=== PATIENT | male | born 1965 ===

== ENCOUNTER 2018-05-23 21:45 | Inpatient (IN) ==
[2018-05-24] MEDS ORDERED: NOREPINEPHRINE 8 MG in SODIUM CHLORIDE 0.9% 242 ML IV PRN ×2 (00:53→01:10)
[2018-05-24] MEDS ORDERED: NOREPINEPHRINE 4 MG/4 ML VIAL IV ONE (00:53)
[2018-05-24] MEDS ORDERED: SODIUM CHLORIDE 0.9% 1,000 ML IV ONE (01:13)
[2018-05-24] MEDS ORDERED: ALBUTEROL 2.5 MG/3 ML NEB RESP TX PRN (01:14)
[2018-05-24] MEDS ORDERED: ONDANSETRON 4 MG/2 ML VIAL IV PRN (01:14)
[2018-05-24] MEDS ORDERED: DEXTROSE 50% 25 GM/50 ML VIAL IV PRN (01:18)
[2018-05-24] MEDS ORDERED: GLUCAGON 1 MG VIAL IM PRN (01:18)
[2018-05-24 01:34] LABS: Basophils # 0.1 10*3/uL (0.0-0.2); Basophils % 0.5 % (0.0-0.8); Eosinophils % 0.1 % (0.00-10.9); Hematocrit 48.6 VOL% (42.0-52.0); Hemoglobin 16.2 GM/DL (14.0-18.0); Immature Granulocytes Absolute 0.15 #; Lymphocytes # 1.2 10*3/uL (1.4-4.0); Lymphocytes % 7.8 % (21.2-54.2); Mean Corpuscular HGB Conc 33.3 GM/DL (32-36); Mean Corpuscular Hemoglobin 31 PG (27-34); Mean Corpuscular Volume 93.8 FL (87-102); Mean Platelet Volume 9.3 FL (9.6-12.0); Monocytes # 1.6 10*3/uL (0.11-0.8); Monocytes % 10.2 % (1.7-12.7); Neutrophils # 12.3 10*3/uL (1.4-7.4); Neutrophils % 80.4 % (38.7-73.9); Platelet Count 312 T/CUMM (130-400); Red Blood Count 5.18 MC/CUMM (3.8-5.5); Red Cell Distribution Width 15.5 % (9.3-17.3); White Blood Count 15.3 T/CUMM (4-12)
[2018-05-24 01:39] LABS: ABG Base Excess -3.3 MMOL/L (-2.5-2.5); ABG HCO3 21.6 MMOL/L (20-26); ABG Oxygen Saturation 95.5 % (95-100); ABG PCO2 46.9 MM HG (35-48); ABG PH 7.308 (7.35-7.45); ABG PO2 95.2 MM HG (80-95); ABG TCO2 20.1 MMOL/L (23-27); Allen Test Positive
[2018-05-24 01:56] LABS: Lactic Acid 2.9 MMOL/L (0.4-2.0)
[2018-05-24 01:57] LABS: Alanine Aminotransferase 22 U/L (16-61); Albumin 3.2 G/DL (3.4-5.0); Alkaline Phosphatase 93 U/L (45-117); Ammonia < 10 UMOL/L (11-32); Aspartate Amino Transferase 38 U/L (0-37); Blood Urea Nitrogen 61 MG/DL (7-18); Calcium 8.9 MG/DL (8.5-10.1); Glucose 159 MG/DL (74-106); Osmolality,Calculated 281.7 MOS/KG (273-304); Potassium 4.5 MMOL/L (3.5-5.1); Sodium 131 MMOL/L (136-145); Total Protein 9.1 G/DL (6.4-8.3)
[2018-05-24] MEDS: PIPERACILLIN/TAZOBACTAM 3,375 MG in SODIUM CHLORIDE 0.9% 100 ML IV SCH ×2 (02:27→15:29)
[2018-05-24 02:48] LABS: Risk Ratio 3.71; Thyroid Stimulating Hormone 1.9 uIU/ml (0.358-3.74); VLDL CHOLESTEROL 26.8 MG/DL
[2018-05-24] MEDS ORDERED: LACTATED RINGERS IV ONE (03:40)
[2018-05-24 04:29] LABS: CKMB % 1.5 %
[2018-05-24] MEDS: INSULIN REGULAR 100 UNIT/ML SUBCUT SCH ×4 (06:13→23:58)
[2018-05-24] MEDS: ENOXAPARIN 30 MG/0.3 ML SYRINGE SUBCUT SCH (09:30)
[2018-05-24] MEDS: methylPREDNISolone SOD SUC 40 MG/1 ML VIAL IV SCH (09:30)
[2018-05-24] MEDS: PANTOPRAZOLE 40 MG VIAL IV SCH (09:30)
[2018-05-24] MEDS: diphenhydrAMINE CAP 25 MG CAPSULE PO SCH ×2 (09:30→15:29)
[2018-05-24] MEDS: FAMOTIDINE 20 MG TABLET PO SCH (09:30)
[2018-05-24] MEDS ORDERED: ASPIRIN EC 325 MG TABLET PO SCH (14:30)
[2018-05-24 16:36] LABS: CKMB % 1.8 %
[2018-05-24 16:39] LABS: Troponin I Only 4.32 NG/ML (0.00-0.045)
[2018-05-25] MEDS: PIPERACILLIN/TAZOBACTAM 3,375 MG in SODIUM CHLORIDE 0.9% 100 ML IV SCH ×2 (01:34→13:28)
[2018-05-25] MEDS: INSULIN REGULAR 100 UNIT/ML SUBCUT SCH ×3 (05:40→18:02)
[2018-05-25 06:50] LABS: Basophils # 0.1 10*3/uL (0.0-0.2); Basophils % 0.5 % (0.0-0.8); Eosinophils % 0.1 % (0.00-10.9); Hematocrit 42.5 VOL% (42.0-52.0); Hemoglobin 14.3 GM/DL (14.0-18.0); Immature Granulocytes % 0.8 %; Immature Granulocytes Absolute 0.09 #; Lymphocytes # 0.4 10*3/uL (1.4-4.0); Lymphocytes % 3.4 % (21.2-54.2); Mean Corpuscular HGB Conc 33.6 GM/DL (32-36); Mean Corpuscular Hemoglobin 31 PG (27-34); Mean Corpuscular Volume 92.2 FL (87-102); Mean Platelet Volume 9.6 FL (9.6-12.0); Monocytes # 0.8 10*3/uL (0.11-0.8); Monocytes % 7.3 % (1.7-12.7); Neutrophils % 87.9 % (38.7-73.9); Platelet Count 295 T/CUMM (130-400); Red Blood Count 4.61 MC/CUMM (3.8-5.5); White Blood Count 11.4 T/CUMM (4-12)
[2018-05-25 06:55] LABS: INR 1.4; PT Patient Result 14.5 SECS
[2018-05-25 07:09] LABS: Calcium 8.5 MG/DL (8.5-10.1); Osmolality,Calculated 295.7 MOS/KG (273-304); Potassium 5.2 MMOL/L (3.5-5.1)
[2018-05-25 07:11] LABS: Albumin 2.2 G/DL (3.4-5.0); Bilirubin,Total 0.4 MG/DL (0.2-1.0); Calcium 8.4 MG/DL (8.5-10.1); Osmolality,Calculated 295.7 MOS/KG (273-304); Potassium 5.1 MMOL/L (3.5-5.1); Total Protein 6.7 G/DL (6.4-8.3)
[2018-05-25 07:12] LABS: Band Neutrophils 9 % (0-10); Hypochromasia 1+; Lymphocytes 5 % (20-55); Ovalocytes Slight; Platelet Estimate Adequate; Segmented Neutrophils 79 % (50-85); Total Cells Counted 100
[2018-05-25 07:25] LABS: CKMB % 1.7 %
[2018-05-25 07:26] LABS: Troponin I Only 4.25 NG/ML (0.00-0.045)
[2018-05-25] MEDS: FAMOTIDINE 20 MG TABLET PO SCH (09:01)
[2018-05-25] MEDS: methylPREDNISolone SOD SUC 40 MG/1 ML VIAL IV SCH (09:02)
[2018-05-25] MEDS: PANTOPRAZOLE 40 MG VIAL IV SCH (09:02)
[2018-05-25] MEDS: ASPIRIN EC 81 MG TABLET PO SCH (09:02)
[2018-05-25] MEDS: ENOXAPARIN 30 MG/0.3 ML SYRINGE SUBCUT SCH (09:03)
[2018-05-25] MEDS: CINACALCET 30 MG TABLET PO SCH (20:13)
[2018-05-26] MEDS: INSULIN REGULAR 100 UNIT/ML SUBCUT SCH ×4 (00:53→18:55)
[2018-05-26] MEDS: PIPERACILLIN/TAZOBACTAM 3,375 MG in SODIUM CHLORIDE 0.9% 100 ML IV SCH ×2 (00:54→12:45)
[2018-05-26 05:42] LABS: Basophils % 0.2 % (0.0-0.8); Hematocrit 40.5 VOL% (42.0-52.0); Hemoglobin 13.5 GM/DL (14.0-18.0); Immature Granulocytes % 0.9 %; Lymphocytes # 0.5 10*3/uL (1.4-4.0); Lymphocytes % 4.7 % (21.2-54.2); Mean Corpuscular HGB Conc 33.3 GM/DL (32-36); Mean Corpuscular Hemoglobin 31 PG (27-34); Mean Corpuscular Volume 91.6 FL (87-102); Mean Platelet Volume 9.9 FL (9.6-12.0); Monocytes # 0.7 10*3/uL (0.11-0.8); Monocytes % 5.9 % (1.7-12.7); Neutrophils # 10.2 10*3/uL (1.4-7.4); Neutrophils % 88.3 % (38.7-73.9); Platelet Count 279 T/CUMM (130-400); Red Blood Count 4.42 MC/CUMM (3.8-5.5); Red Cell Distribution Width 14.9 % (9.3-17.3); White Blood Count 11.5 T/CUMM (4-12)
[2018-05-26 05:58] LABS: Calcium 8.1 MG/DL (8.5-10.1); Osmolality,Calculated 308.5 MOS/KG (273-304)
[2018-05-26 06:18] LABS: Band Neutrophils 9 % (0-10); Lymphocytes 5 % (20-55); Segmented Neutrophils 83 % (50-85); Total Cells Counted 100
[2018-05-26 06:19] LABS: Burr Cells Few; Platelet Estimate Normal; Target Cells Few
[2018-05-26] MEDS: FAMOTIDINE 20 MG TABLET PO SCH (08:35)
[2018-05-26] MEDS: methylPREDNISolone SOD SUC 40 MG/1 ML VIAL IV SCH (08:35)
[2018-05-26] MEDS: PANTOPRAZOLE 40 MG VIAL IV SCH (08:35)
[2018-05-26] MEDS: INSULIN NPH/REGULAR 70/30 100 UNIT/ML SUBCUT SCH (08:35)
[2018-05-26] MEDS: ENOXAPARIN 30 MG/0.3 ML SYRINGE SUBCUT SCH (08:35)
[2018-05-26] MEDS: ASPIRIN EC 81 MG TABLET PO SCH (08:36)
[2018-05-26] MEDS: CINACALCET 30 MG TABLET PO SCH (20:18)
[2018-05-27] MEDS: INSULIN REGULAR 100 UNIT/ML SUBCUT SCH ×4 (00:25→17:36)
[2018-05-27 05:18] LABS: Basophils % 0.2 % (0.0-0.8); Hematocrit 46.1 VOL% (42.0-52.0); Hemoglobin 15.8 GM/DL (14.0-18.0); Immature Granulocytes % 1.1 %; Immature Granulocytes Absolute 0.11 #; Lymphocytes # 0.6 10*3/uL (1.4-4.0); Lymphocytes % 6.4 % (21.2-54.2); Mean Corpuscular HGB Conc 34.3 GM/DL (32-36); Mean Corpuscular Hemoglobin 32 PG (27-34); Mean Corpuscular Volume 92.8 FL (87-102); Mean Platelet Volume 9.8 FL (9.6-12.0); Monocytes # 0.7 10*3/uL (0.11-0.8); Monocytes % 7.2 % (1.7-12.7); Neutrophils # 8.6 10*3/uL (1.4-7.4); Neutrophils % 85.1 % (38.7-73.9); Platelet Count 319 T/CUMM (130-400); Red Blood Count 4.97 MC/CUMM (3.8-5.5); Red Cell Distribution Width 14.9 % (9.3-17.3)
[2018-05-27] MEDS: FAMOTIDINE 20 MG TABLET PO SCH (10:03)
[2018-05-27] MEDS: ASPIRIN EC 81 MG TABLET PO SCH (10:03)
[2018-05-27] MEDS: ENOXAPARIN 30 MG/0.3 ML SYRINGE SUBCUT SCH (10:04)
[2018-05-27] MEDS: PANTOPRAZOLE 40 MG VIAL IV SCH (10:04)
[2018-05-27] MEDS: INSULIN NPH/REGULAR 70/30 100 UNIT/ML SUBCUT SCH ×2 (10:04→17:35)
[2018-05-27] MEDS: CINACALCET 30 MG TABLET PO SCH (20:28)
[2018-05-28] MEDS: INSULIN REGULAR 100 UNIT/ML SUBCUT SCH ×4 (00:03→19:02)
[2018-05-28 04:49] LABS: Basophils # 0.1 10*3/uL (0.0-0.2); Basophils % 0.5 % (0.0-0.8); Eosinophils # 0.1 10*3/uL (0.0-0.87); Eosinophils % 0.5 % (0.00-10.9); Hematocrit 47.2 VOL% (42.0-52.0); Immature Granulocytes % 3.4 %; Immature Granulocytes Absolute 0.36 #; Lymphocytes % 9.1 % (21.2-54.2); Mean Corpuscular HGB Conc 33.9 GM/DL (32-36); Mean Corpuscular Hemoglobin 31 PG (27-34); Mean Corpuscular Volume 91.3 FL (87-102); Mean Platelet Volume 9.5 FL (9.6-12.0); Monocytes # 1.2 10*3/uL (0.11-0.8); Monocytes % 11.4 % (1.7-12.7); Neutrophils % 75.1 % (38.7-73.9); Platelet Count 325 T/CUMM (130-400); Red Blood Count 5.17 MC/CUMM (3.8-5.5); Red Cell Distribution Width 15.3 % (9.3-17.3); White Blood Count 10.6 T/CUMM (4-12)
[2018-05-28 05:16] LABS: Albumin 2.4 G/DL (3.4-5.0); Bilirubin,Total 0.6 MG/DL (0.2-1.0); Calcium 7.2 MG/DL (8.5-10.1); Osmolality,Calculated 299.8 MOS/KG (273-304); Potassium 4.5 MMOL/L (3.5-5.1); Total Protein 7.1 G/DL (6.4-8.3)
[2018-05-28] MEDS: PANTOPRAZOLE 40 MG VIAL IV SCH (09:20)
[2018-05-28] MEDS: INSULIN NPH/REGULAR 70/30 100 UNIT/ML SUBCUT SCH ×2 (09:21→17:17)
[2018-05-28] MEDS: FAMOTIDINE 20 MG TABLET PO SCH (09:23)
[2018-05-28] MEDS: ASPIRIN EC 81 MG TABLET PO SCH (09:23)
[2018-05-28] MEDS: ENOXAPARIN 30 MG/0.3 ML SYRINGE SUBCUT SCH (09:23)
[2018-05-28] MEDS: CINACALCET 30 MG TABLET PO SCH (20:41)
[2018-05-29] MEDS: INSULIN REGULAR 100 UNIT/ML SUBCUT SCH ×4 (00:04→17:27)
[2018-05-29] MEDS: INSULIN NPH/REGULAR 70/30 100 UNIT/ML SUBCUT SCH ×2 (07:30→17:27)
[2018-05-29] MEDS: FAMOTIDINE 20 MG TABLET PO SCH (14:08)
[2018-05-29] MEDS: PANTOPRAZOLE 40 MG VIAL IV SCH (14:09)
[2018-05-29] MEDS: ENOXAPARIN 30 MG/0.3 ML SYRINGE SUBCUT SCH (14:09)
[2018-05-29] MEDS: ASPIRIN EC 81 MG TABLET PO SCH (14:09)
[2018-05-29 16:36] VITALS: BP 103/67
== END 2018-05-29 18:05 | disposition home health service (06) | DRG 871 ==
LOC: N.ICU 05-24 00:32 → SUATTDRO 05-24 00:32 → N.3E 05-25 14:02
PROVIDERS: ADMIT Internal Medicine